=== PATIENT | male | born 1960 | race Native Hawaiian/Other Pacific Islander ===

== ENCOUNTER 2017-12-10 14:57 | Emergency (ER) | payer SELFPAY ==
[2017-12-10 15:13] VITALS: O2SAT 99
[2017-12-10] MEDS ORDERED: Sodium Chloride 0.9% 1,000 ML IV ONE (15:42)
[2017-12-10] MEDS ORDERED: Piperacillin/Tazobact 3.375 gm 100 ML IV STA (15:44)
--- NOTE | 2017-12-10 15:46 | C.PDOC ---
History Of Present Illness 57 yo male w/PMhx of NIDDM was sent to ED by for evaluation of painful mass over midback gradually developed for past 2 weeks. Pt reports, " noted significant enlargement for psat few days, oozing some yellow discharge". O therwise, pt denies fever, chills, known trauma or injury, CP, SOB, dyspnea, diaphoresis, palpitation, abd. pain, V/D, back pain, UTI sx. Ambulate to Ed, not in any apparent distress. Time Seen by Provider: 12/10/17 15:03 Chief Complaint (Nursing): Abnormal Skin Integrity History Per: Patient Past Medical History Reviewed: Historical Data, Nursing Documentation, Vital Signs Vital Signs: Last Vital Signs Temp 99.2 F 12/10/17 15:10 Pulse 70 12/10/17 15:10 Resp 18 12/10/17 15:10 BP 161/89 H 12/10/17 15:10 Pulse Ox 99 12/10/17 15:10 - Medical History PMH: Diabetes, HTN, Hypercholesterolemia Surgical History: Endoscopy Family History: States: No Known Family Hx - Social History Hx Tobacco Use: No Hx Alcohol Use: Yes Hx Substance Use: No - Immunization History Hx Tetanus Toxoid Vaccination: No Hx Influenza Vaccination: No Hx Pneumococcal Vaccination: No Review Of Systems Except As Marked, All Systems Reviewed And Found Negative. Constitutional: Negative for: Fever, Chills ENT: Negative for: Ear Discharge, Throat Pain Cardiovascular: Negative for: Chest Pain, Palpitations, Edema, Light Headedness Respiratory: Negative for: Cough, Shortness of Breath, Wheezing Gastrointestinal: Negative for: Nausea, Vomiting, Abdominal Pain, Diarrhea Genitourinary: Negative for: Dysuria Musculoskeletal: Negative for: Neck Pain Skin: Positive for: Lesions Neurological: Negative for: Weakness, Numbness, Altered Mental Status, Headache, Dizziness Physical Exam - Physical Exam Appears: Well, Non-toxic, No Acute Distress Skin: Normal Color, Warm, Dry, Other (3#5cm tender mobile mass ove middle pos terior back, flactulance, mild yellow thick oozing. No proximal streaking.) Head: Normacephalic Eye(s): bilateral: PERRL Nose: No Flaring, No Discharge Oral Mucosa: Moist, No Drooling Throat: No Erythema, No Drooling Neck: Normal ROM, Trachea Midline, Supple Cardiovascular: Rhythm Regular, No Murmur, No JVD Respiratory: No Decreased Breath Sounds, No Accessory Muscle Use, No Stridor, No Wheezing Gastrointestinal/Abdominal: Soft, No Tenderness, No Distention, No Guarding Back: No CVA Tenderness, No Vertebral Tenderness, No Paraspinal Tenderness Extremity: No Tenderness, No Deformity, No Swelling Neurological/Psych: Oriented x3, Normal Speech, Normal Motor, Normal Sensation, Normal Reflexes ED Course And Treatment - Laboratory Results Result Diagrams: 12/10/17 16:20 12/10/17 16:20 Lab Interpretation: No Acute Changes O2 Sat by Pulse Oximetry: 99 Pulse Ox Interpretation: Normal - Radiology CXR: Interpreted by Me, Viewed By Me CXR Interpretation: Yes: No Acute Disease Progress Note: case discussed with , requested surgical consult with and admission to hospitalist. DR. Albert called for consult, resident notified about consult at 17:00. After pt was seen by certified ophthalmic surgical assistant, case discussed with , admission for OR I&D recommend. Case discussed with Hospitalist and admission arranged. Pt remained tsable during the ED ev aluation. afebrile, hemodynamicaly stable. Non-toxic. results review and discussed with pt, agrees with plan. Disposition - Disposition Referrals: Nelson Albert MD [Staff Provider] - Disposition: HOSPITALIZED Disposition Time: 17:55 Condition: STABLE Additional Instructions: Patient is stable for discharge per Dr. Arevalo. Please follow up with General Surgery Dr. Albert in two days. Please call his office at [phone]. His office: [address] [place] [address] Please follow up with your primary doctor within 1 week. Please take the prescribed antibiotic for 7 days, take one tablet twice daily, 12 hours apart. Please keep the incision and drainage area part in place and dry until he is seen by Dr. Albert. Please continue to take his home medications as prescribed. If symptoms worsen patient should return to the nearest emergency facility. Case discussed with with patient and patient agreed and understood. Take care. Prescriptions: Doxycycline Hyclate 100 mg PO Q12H 7 Days #14 capsule Instructions: Cellulitis (Skin Infection), Adult (DC) Forms: [employer] (Upper Sorbian) - Clinical Impression Clinical Impression: Abscess or cellulitis of back
[2017-12-10] MEDS ORDERED: Piperacillin/Tazobact 3.375 gm 100 ML IVPB ONE (16:00)
[2017-12-10 16:25] LABS: BASO # 0.1 K/uL (0.0-0.2); BASO % 0.9 % (0.0-2.0); EOS % 0.3 % (0.0-4.0); HEMOGLOBIN 13.9 g/dL (12.0-18.0); LYMPH # 1.8 K/uL (1.0-4.3); LYMPH % 21.4 % (20.0-40.0); MEAN CELL VOLUME 89.2 fL (80.0-94.0); MEAN CORPUSCULAR HEMOGLOBIN 30.1 pg (27.0-31.0); MEAN CORPUSCULAR HGB CONC 33.7 g/dL (33.0-37.0); MEAN PLATELET VOLUME 7.6 fL (7.2-11.7); MONO # 0.6 K/uL (0.0-0.8); MONO % 7.3 % (0.0-10.0); NEUT # 5.8 K/uL (1.8-7.0); NEUT % 70.1 % (50.0-75.0); RBC 4.63 Mil/uL (4.40-5.90); RED CELL DISTRIBUTION WIDTH 13.3 % (11.5-14.5); WHITE BLOOD COUNT 8.3 K/uL (4.8-10.8)
[2017-12-10 16:32] LABS: SQUAMOUS EPITHIAL < 1 /hpf (0-5); URINE BILIRUBIN NEGATIVE (NEGATIVE); URINE BLOOD NEGATIVE (NEGATIVE); URINE CLARITY Clear (Clear); URINE COLOR Yellow (YELLOW); URINE GLUCOSE (UA) NORMAL (Normal); URINE LEUKOCYTE ESTERASE NEG Leu/uL (Negative); URINE PROTEIN NEGATIVE (NEGATIVE); URINE UROBILINOGEN NORMAL mg/dL (0.2-1.0)
[2017-12-10 16:33] LABS: INR 1.1; PROTHROMBIN TIME 12.1 SECONDS (9.7-12.2)
[2017-12-10 16:36] LABS: BLOOD UREA NITROGEN 17 mg/dL (9-20); CALCIUM 8.7 mg/dl (8.6-10.4); GFR NON-AFRICAN AMERICAN > 60
--- NOTE | 2017-12-10 16:36 | RAD ---
Date of service: 12/10/2017 HISTORY: SOB COMPARISON: No prior. TECHNIQUE: Chest PA and lateral FINDINGS: LUNGS: No active pulmonary disease. PLEURA: No significant pleural effusion identified. No pneumothorax apparent. CARDIOVASCULAR: No aortic atherosclerotic calcification present. Normal cardiac size. No pulmonary vascular congestion. OSSEOUS STRUCTURES: No significant abnormalities. VISUALIZED UPPER ABDOMEN: Normal. OTHER FINDINGS: None. IMPRESSION: No active disease.
[2017-12-10 16:42] LABS: ALB/GLOB RATIO 1.3 (1.0-2.1); ALBUMIN 4.3 g/dL (3.5-5.0); ALT/SGPT 30 U/L (21-72); AST/SGOT 31 U/L (17-59)
--- NOTE | 2017-12-10 18:33 | CP.PCM.CON ---
History of Present Illness - History of Present Illness History of Present Illness: General Surgery Consult Note for Dr. Albert Reason for Consult: mid back abscess vs infected sebaceous cyst 57 M with PMH of HTN, DM presents to [facility] for complaint of mid back abscess. Patient was seen and examined in ED. Patient states that he has had a raised area on his back for about two week. It started out small then gradually go larger. He states that it has been causing him discomfort. He reports drainage from the site. Patient was referred to ED today by his PMD. Patient rates pain as moderate. He describes it as constant and aching loctaed on left mid back. He denies any aggravating or alleviating factors. Patient denies fever/chills, cp, SOB, palpitations, nausea/vomiting, diarrhea, abd pain, urinary symptoms. PMH: as above PSH: endoscopy Meds: As per MAR ALL: NSAIDs FH: non-contributory Social: denies tobacco/EtOH/illicit drug use Review of Systems - Review of Systems All systems: reviewed and no additional remarkable complaints except (as per HPI) Past Patient History - Past Social History Smoking Status: Never Smoked - CARDIAC Hx Hypercholesterolemia: Yes Hx Hypertension: Yes - ENDOCRINE/METABOLIC Hx Endocrine Disorders: Yes Hx Diabetes Mellitus Type 2: Yes - PSYCHIATRIC Hx Substance Use: No - SURGICAL HISTORY Hx Surgeries: Yes Meds Home Medications: Home Medication List Medication Instructions Recorded Confirmed Type Doxycycline Hyclate 100 mg PO Q12H 7 Days #14 capsule 12/10/17 Rx Allergies/Adverse Reactions: Allergies Allergy/AdvReac Type Severity Reaction Status Date / Time NSAIDS (Non-Steroidal AdvReac Severe PAIN Verified 12/10/17 15:14 Anti-Inflamma Physical Exam - Constitutional Appears: Well, Non-toxic, No Acute Distress - Head Exam Head Exam: ATRAUMATIC, NORMOCEPHALIC - Eye Exam Eye Exam: EOMI, Normal appearance Pupil Exam: PERRL - ENT Exam ENT Exam: Mucous Membranes Moist - Respiratory Exam Respiratory Exam: NORMAL BREATHING PATTERN - Cardiovascular Exam Cardiovascular Exam: REGULAR RHYTHM - GI/Abdominal Exam GI & Abdominal Exam: Soft. absent: Tenderness - Extremities Exam Extremities exam: Positive for: normal capillary refill, pedal pulses present. Negative for: calf tenderness - Back Exam Additional comments: 3 x 5 cm raised area in mid back near T4-T5, purulent drainage, erythema, fluctuance and induration present - Neurological Exam Neurological exam: Alert, CN II-XII Intact, Normal Gait, Oriented x3 - Psychiatric Exam Psychiatric exam: Normal Affect, Normal Mood - Skin Skin Exam: Dry, Warm Additional comments: 3 x 5 cm raised area in mid back near T4-T5, purulent drainage, erythema, fluctuance and induration present Results - Vital Signs Recent Vital Signs: Last Vital Signs Temp 99.2 F 12/10/17 15:10 Pulse 70 12/10/17 15:10 Resp 18 12/10/17 15:10 BP 161/89 H 12/10/17 15:10 Pulse Ox 99 12/10/17 18:15 - Labs Result Diagrams: 12/10/17 16:20 12/10/17 16:20 Labs: Laboratory Results - last 24 hr 12/10/17 12/10/17 12/10/17 16:20 16:20 16:20 WBC 8.3 RBC 4.63 Hgb 13.9 Hct 41.4 MCV 89.2 MCH 30.1 MCHC 33.7 RDW 13.3 Plt Count 239 MPV 7.6 Neut % (Auto) 70.1 Lymph % (Auto) 21.4 [place] % (Auto) 7.3 Eos % (Auto) 0.3 Baso % (Auto) 0.9 Neut # (Auto) 5.8 Lymph # (Auto) 1.8 [place] # (Auto) 0.6 Eos # (Auto) 0.0 Baso # (Auto) 0.1 PT 12.1 INR 1.1 APTT 38 H Sodium 138 Potassium 4.5 Chloride 101 Carbon Dioxide 26 Anion Gap 15 BUN 17 Creatinine 0.7 L Est GFR ( Amer) > 60 Est GFR (Non-Af Amer) > 60 Random Glucose 161 H Calcium 8.7 Total Bilirubin 0.8 AST 31 ALT 30 Alkaline Phosphatase 50 Total Creatine Kinase 190 H Total Protein 7.7 Albumin 4.3 Globulin 3.3 Albumin/Globulin Ratio 1.3 Urine Color Urine Clarity Urine pH Ur Specific [place] Urine Protein Urine Glucose (UA) Urine Ketones Urine Blood Urine Nitrate Urine Bilirubin Urine Urobilinogen Ur Leukocyte Esterase Urine WBC (Auto) Urine RBC (Auto) Ur Squamous Epith Cells 12/10/17 16:20 WBC RBC Hgb Hct MCV MCH MCHC RDW Plt Count MPV Neut % (Auto) Lymph % (Auto) [place] % (Auto) Eos % (Auto) Baso % (Auto) Neut # (Auto) Lymph # (Auto) [place] # (Auto) Eos # (Auto) Baso # (Auto) PT INR APTT Sodium Potassium Chloride Carbon Dioxide Anion Gap BUN Creatinine Est GFR ( Amer) Est GFR (Non-Af Amer) Random Glucose Calcium Total Bilirubin AST ALT Alkaline Phosphatase Total Creatine Kinase Total Protein Albumin Globulin Albumin/Globulin Ratio Urine Color Yellow Urine Clarity Clear Urine pH 5.0 Ur Specific [place] 1.021 Urine Protein Negative Urine Glucose (UA) Normal Urine Ketones Negative Urine Blood Negative Urine Nitrate Negative Urine Bilirubin Negative Urine Urobilinogen Normal Ur Leukocyte Esterase Neg Urine WBC (Auto) < 1 Urine RBC (Auto) 1 Ur Squamous Epith Cells < 1 Assessment & Plan - Assessment and Plan (Free Text) Assessment: 57 M who presents for infected sebaceous cyst of mid back Plan: -Bedside I&D performed -Patient clear for discharge from surgical standpoint -Take oral antibiotics for 7 days as prescribed -Follow up with Dr. Albert in 2 days to get packing removed -May change dressing as needed -Refrain from showering -Keep area clean and dry -[facility] - Date & Time Date: 12/10/17 Time: 19:30
[2017-12-10] MEDS ORDERED: Lidocaine 1%/Epinephrine 1:100000 30 ml vial IJ ONE (18:50)
--- NOTE | 2017-12-10 18:51 | PCM.SURG1 ---
Surgeon's Initial Post Op Note - Surgeon's Notes Surgeon: Dr. Albert Solar Pv Installer: Glendy PGY2 Type of Anesthesia: Local Pre-Operative Diagnosis: infected sebaceous cyst vs abscess of mid back Operative Findings: infected sebaceous cyst of mid back Post-Operative Diagnosis: infected sebaceous cyst of mid back Operation Performed: Bedside Incision & drainage of infected sebaceous cyst of mid back with irrigation and packing Specimen/Specimens Removed: wound culture Estimated Blood Loss: EBL {In ML}: 10 Blood Products Given: N/A Drains Used: No Drains Post-Op Condition: Good Date of Surgery/Procedure: 12/10/17 Time of Surgery/Procedure: 19:59
[2017-12-10] MEDS ORDERED: Lidocaine 2% MPF (5 ml) Inj ONE (19:11)
--- NOTE | 2017-12-10 20:06 | CP.PCM.HP ---
<Jose Eduardo Bowen M - Last Filed: 12/10/17 22:01> History of Present Illness - History of Present Illness History of Present Illness: H&P for Hospitalist Dr. rAevalo. 57 y w/ PMHx of diabetes, HTN, and sebaceous cyst presents to ED of worsening of his sebaceous cyst, that became infectious. Patient stated for the past week the the sebaceous cyst became irritated and began expression fluid. Patient attempted to use OTC abx ointment; however, it did not resolve. Patient visited his PMD that requested to visit the ED for further management. Patient stated the area was painful but denied fevers, chills, nausea, vomiting, chest pain, SOB, abdominal pain. In ED patient had bedside I&D by the surgical garment assembler. PMD: PMHx: HTN, DM, sebaceous cyst Meds: Lisinopril, glipizide, dexilant, atorvastatin PSHx: endoscopy Allergies: NSAIDs Social: denies tobacco, occasional ETOH Present on Admission - Present on Admission Any Indicators Present on Admission: No Review of Systems - Constitutional Constitutional: absent: Chills, Fever - EENT Eyes: absent: Pain Ears: absent: Ear Pain Nose/Mouth/Throat: absent: Dry Mouth - Cardiovascular Cardiovascular: absent: Chest Pain - Respiratory Respiratory: absent: Dyspnea - Gastrointestinal Gastrointestinal: absent: Abdominal Pain, Vomiting - Genitourinary Genitourinary: absent: Change in Urinary Stream - Neurological Neurological: absent: Abnormal Hearing Past Patient History - Past Social History Smoking Status: Never Smoked - CARDIAC Hx Hypercholesterolemia: Yes Hx Hypertension: Yes - ENDOCRINE/METABOLIC Hx Endocrine Disorders: Yes Hx Diabetes Mellitus Type 2: Yes - PSYCHIATRIC Hx Substance Use: No - SURGICAL HISTORY Hx Surgeries: Yes Meds Home Medications: Home Medication List Medication Instructions Recorded Confirmed Type RX: Doxycycline Hyclate 100 mg PO Q12H 7 Days #14 capsule 12/10/17 Rx Allergies/Adverse Reactions: Allergies Allergy/AdvReac Type Severity Reaction Status Date / Time NSAIDS (Non-Steroidal AdvReac Severe PAIN Verified 12/10/17 15:14 Anti-Inflamma Physical Exam - Constitutional Appears: Non-toxic, No Acute Distress - Head Exam Head Exam: ATRAUMATIC, NORMAL INSPECTION, NORMOCEPHALIC - Eye Exam Eye Exam: Normal appearance - ENT Exam ENT Exam: Mucous Membranes Moist - Respiratory Exam Respiratory Exam: Clear to Auscultation Bilateral, NORMAL BREATHING PATTERN. absent: Rales, Rhonchi, Wheezes - Cardiovascular Exam Cardiovascular Exam: +S1, +S2 - GI/Abdominal Exam GI & Abdominal Exam: Normal Bowel Sounds, Soft. absent: Tenderness - Extremities Exam Extremities exam: Negative for: calf tenderness, pedal edema - Back Exam Back exam: absent: CVA tenderness (L), CVA tenderness (R) - Neurological Exam Neurological exam: Alert, Oriented x3 - Psychiatric Exam Psychiatric exam: Normal Mood - Skin Skin Exam: Dry, Normal Color, Warm Additional comments: I&D area in upper L thoracic region ( roughly T4- T6) - I & D area wrapped with packing in place - Exterior portion of dressing clean, dry Results - Vital Signs Recent Vital Signs: Last Vital Signs Temp 99.2 F 12/10/17 15:10 Pulse 70 12/10/17 15:10 Resp 18 12/10/17 15:10 BP 161/89 H 12/10/17 15:10 Pulse Ox 99 12/10/17 18:15 - Labs Result Diagrams: 12/10/17 16:20 12/10/17 16:20 Labs: Laboratory Results - last 24 hr 12/10/17 12/10/17 12/10/17 16:20 16:20 16:20 WBC 8.3 RBC 4.63 Hgb 13.9 Hct 41.4 MCV 89.2 MCH 30.1 MCHC 33.7 RDW 13.3 Plt Count 239 MPV 7.6 Neut % (Auto) 70.1 Lymph % (Auto) 21.4 [place] % (Auto) 7.3 Eos % (Auto) 0.3 Baso % (Auto) 0.9 Neut # (Auto) 5.8 Lymph # (Auto) 1.8 [place] # (Auto) 0.6 Eos # (Auto) 0.0 Baso # (Auto) 0.1 PT 12.1 INR 1.1 APTT 38 H Sodium 138 Potassium 4.5 Chloride 101 Carbon Dioxide 26 Anion Gap 15 BUN 17 Creatinine 0.7 L Est GFR ( Amer) > 60 Est GFR (Non-Af Amer) > 60 Random Glucose 161 H Calcium 8.7 Total Bilirubin 0.8 AST 31 ALT 30 Alkaline Phosphatase 50 Total Creatine Kinase 190 H Total Protein 7.7 Albumin 4.3 Globulin 3.3 Albumin/Globulin Ratio 1.3 Urine Color Urine Clarity Urine pH Ur Specific [place] Urine Protein Urine Glucose (UA) Urine Ketones Urine Blood Urine Nitrate Urine Bilirubin Urine Urobilinogen Ur Leukocyte Esterase Urine WBC (Auto) Urine RBC (Auto) Ur Squamous Epith Cells 12/10/17 16:20 WBC RBC Hgb Hct MCV MCH MCHC RDW Plt Count MPV Neut % (Auto) Lymph % (Auto) [place] % (Auto) Eos % (Auto) Baso % (Auto) Neut # (Auto) Lymph # (Auto) [place] # (Auto) Eos # (Auto) Baso # (Auto) PT INR APTT Sodium Potassium Chloride Carbon Dioxide Anion Gap BUN Creatinine Est GFR ( Amer) Est GFR (Non-Af Amer) Random Glucose Calcium Total Bilirubin AST ALT Alkaline Phosphatase Total Creatine Kinase Total Protein Albumin Globulin Albumin/Globulin Ratio Urine Color Yellow Urine Clarity Clear Urine pH 5.0 Ur Specific [place] 1.021 Urine Protein Negative Urine Glucose (UA) Normal Urine Ketones Negative Urine Blood Negative Urine Nitrate Negative Urine Bilirubin Negative Urine Urobilinogen Normal Ur Leukocyte Esterase Neg Urine WBC (Auto) < 1 Urine RBC (Auto) 1 Ur Squamous Epith Cells < 1 Assessment & Plan - Assessment and Plan (Free Text) Assessment: 57 y w/ PMHx of diabetes, HTN, and sebaceous cyst presents to ED of worsening of his sebaceous cyst, that became infectious, bedside I&D performed by surgical garment assembler w/ packing in place: Sebaceous cyst/ Abscess - F/u surgery recs, Dr. Albert consulted - bedside I&D w/ packing - keep area dry - f/u w/ Dr. Albert outpatient - Doxycycline 100 mg Q12H for 7 days HTN - continue home medications: lisinopril 2.5mg daily DM - continue home medications: glipizide 5mg BID GERD - continue home medications: dexilant 60 mg daily HLD - continue home medications: lipitor 40mg daily <Simone Arevalo P - Last Filed: 12/11/17 08:18> Results - Vital Signs Recent Vital Signs: Last Vital Signs Temp 98.4 F 12/10/17 20:40 Pulse 79 12/10/17 20:40 Resp 20 12/10/17 20:40 BP 158/78 H 12/10/17 20:40 Pulse Ox 99 12/10/17 20:40 - Labs Result Diagrams: 12/10/17 16:20 12/10/17 16:20 Labs: Laboratory Results - last 24 hr 12/10/17 12/10/17 12/10/17 16:20 16:20 16:20 WBC 8.3 RBC 4.63 Hgb 13.9 Hct 41.4 MCV 89.2 MCH 30.1 MCHC 33.7 RDW 13.3 Plt Count 239 MPV 7.6 Neut % (Auto) 70.1 Lymph % (Auto) 21.4 [place] % (Auto) 7.3 Eos % (Auto) 0.3 Baso % (Auto) 0.9 Neut # (Auto) 5.8 Lymph # (Auto) 1.8 [place] # (Auto) 0.6 Eos # (Auto) 0.0 Baso # (Auto) 0.1 PT 12.1 INR 1.1 APTT 38 H Sodium 138 Potassium 4.5 Chloride 101 Carbon Dioxide 26 Anion Gap 15 BUN 17 Creatinine 0.7 L Est GFR ( Amer) > 60 Est GFR (Non-Af Amer) > 60 Random Glucose 161 H Calcium 8.7 Total Bilirubin 0.8 AST 31 ALT 30 Alkaline Phosphatase 50 Total Creatine Kinase 190 H Total Protein 7.7 Albumin 4.3 Globulin 3.3 Albumin/Globulin Ratio 1.3 Urine Color Urine Clarity Urine pH Ur Specific [place] Urine Protein Urine Glucose (UA) Urine Ketones Urine Blood Urine Nitrate Urine Bilirubin Urine Urobilinogen Ur Leukocyte Esterase Urine WBC (Auto) Urine RBC (Auto) Ur Squamous Epith Cells 12/10/17 16:20 WBC RBC Hgb Hct MCV MCH MCHC RDW Plt Count MPV Neut % (Auto) Lymph % (Auto) [place] % (Auto) Eos % (Auto) Baso % (Auto) Neut # (Auto) Lymph # (Auto) [place] # (Auto) Eos # (Auto) Baso # (Auto) PT INR APTT Sodium Potassium Chloride Carbon Dioxide Anion Gap BUN Creatinine Est GFR ( Amer) Est GFR (Non-Af Amer) Random Glucose Calcium Total Bilirubin AST ALT Alkaline Phosphatase Total Creatine Kinase Total Protein Albumin Globulin Albumin/Globulin Ratio Urine Color Yellow Urine Clarity Clear Urine pH 5.0 Ur Specific [place] 1.021 Urine Protein Negative Urine Glucose (UA) Normal Urine Ketones Negative Urine Blood Negative Urine Nitrate Negative Urine Bilirubin Negative Urine Urobilinogen Normal Ur Leukocyte Esterase Neg Urine WBC (Auto) < 1 Urine RBC (Auto) 1 Ur Squamous Epith Cells < 1 Attending/Attestation - Attestation I have personally seen and examined this patient.: Yes I have fully participated in the care of the patient.: Yes I have reviewed all pertinent clinical information: Yes Notes (Text): 12/11/17 08:10 Infected sebaceous cyst DM controlled. Plan Patient was cleared by surgery after drainage of the cyst and removal of the sack, the space was packed with gauze. Patient to follow up Dr. Albert in the clinic in 1-2 days and discharged with script of doxycycline.
--- NOTE | 2017-12-10 20:07 | CP.PCM.DIS ---
Provider - Provider Date of Admission: 12/10/17 17:55 Attending physician: Jeffery Lemon DO Primary care physician: Dr. Estrada Consults: Dr. Albert (general surgery) Time Spent in preparation of Discharge (in minutes): 40 Diagnosis - Discharge Diagnosis (1) Abscess or cellulitis of back Status: Acute Comment: Surgery performed I&D at bedside. D/C with oral abx. Hospital Course - Lab Results Lab Results: Micro Results 12/10/17 16:20 Back Gram Stain - Final Most Recent Lab Values WBC 8.3 K/uL (4.8-10.8) 12/10/17 16:20 RBC 4.63 Mil/uL (4.40-5.90) 12/10/17 16:20 Hgb 13.9 g/dL (12.0-18.0) 12/10/17 16:20 Hct 41.4 % (35.0-51.0) 12/10/17 16:20 MCV 89.2 fL (80.0-94.0) 12/10/17 16:20 MCH 30.1 pg (27.0-31.0) 12/10/17 16:20 MCHC 33.7 g/dL (33.0-37.0) 12/10/17 16:20 RDW 13.3 % (11.5-14.5) 12/10/17 16:20 Plt Count 239 K/uL (130-400) 12/10/17 16:20 MPV 7.6 fL (7.2-11.7) 12/10/17 16:20 Neut % (Auto) 70.1 % (50.0-75.0) 12/10/17 16:20 Lymph % (Auto) 21.4 % (20.0-40.0) 12/10/17 16:20 Weston % (Auto) 7.3 % (0.0-10.0) 12/10/17 16:20 Eos % (Auto) 0.3 % (0.0-4.0) 12/10/17 16:20 Baso % (Auto) 0.9 % (0.0-2.0) 12/10/17 16:20 Neut # (Auto) 5.8 K/uL (1.8-7.0) 12/10/17 16:20 Lymph # (Auto) 1.8 K/uL (1.0-4.3) 12/10/17 16:20 Weston # (Auto) 0.6 K/uL (0.0-0.8) 12/10/17 16:20 Eos # (Auto) 0.0 K/uL (0.0-0.7) 12/10/17 16:20 Baso # (Auto) 0.1 K/uL (0.0-0.2) 12/10/17 16:20 PT 12.1 SECONDS (9.7-12.2) 12/10/17 16:20 INR 1.1 12/10/17 16:20 APTT 38 SECONDS (21-34) H 12/10/17 16:20 Sodium 138 mmol/L (132-148) 12/10/17 16:20 Potassium 4.5 mmol/L (3.6-5.2) 12/10/17 16:20 Chloride 101 mmol/L (98-107) 12/10/17 16:20 Carbon Dioxide 26 mmol/L (22-30) 12/10/17 16:20 Anion Gap 15 (10-20) 12/10/17 16:20 BUN 17 mg/dL (9-20) 12/10/17 16:20 Creatinine 0.7 mg/dL (0.8-1.5) L 12/10/17 16:20 Est GFR ( Amer) > 60 12/10/17 16:20 Est GFR (Non-Af Amer) > 60 12/10/17 16:20 Random Glucose 161 mg/dL (75-110) H 12/10/17 16:20 Calcium 8.7 mg/dl (8.6-10.4) 12/10/17 16:20 Total Bilirubin 0.8 mg/dL (0.2-1.3) 12/10/17 16:20 AST 31 U/L (17-59) 12/10/17 16:20 ALT 30 U/L (21-72) 12/10/17 16:20 Alkaline Phosphatase 50 U/L (38-126) 12/10/17 16:20 Total Creatine Kinase 190 U/L (55-170) H 12/10/17 16:20 Total Protein 7.7 g/dL (6.3-8.3) 12/10/17 16:20 Albumin 4.3 g/dL (3.5-5.0) 12/10/17 16:20 Globulin 3.3 gm/dL (2.2-3.9) 12/10/17 16:20 Albumin/Globulin Ratio 1.3 (1.0-2.1) 12/10/17 16:20 Urine Color Yellow (YELLOW) 12/10/17 16:20 Urine Clarity Clear (Clear) 12/10/17 16:20 Urine pH 5.0 (5.0-8.0) 12/10/17 16:20 Ur Specific [place] 1.021 (1.003-1.030) 12/10/17 16:20 Urine Protein Negative mg/dL (NEGATIVE) 12/10/17 16:20 Urine Glucose (UA) Normal mg/dL (Normal) 12/10/17 16:20 Urine Ketones Negative mg/dL (NEGATIVE) 12/10/17 16:20 Urine Blood Negative (NEGATIVE) 12/10/17 16:20 Urine Nitrate Negative (NEGATIVE) 12/10/17 16:20 Urine Bilirubin Negative (NEGATIVE) 12/10/17 16:20 Urine Urobilinogen Normal mg/dL (0.2-1.0) 12/10/17 16:20 Ur Leukocyte Esterase Neg Fernandez/uL (Negative) 12/10/17 16:20 Urine WBC (Auto) < 1 /hpf (0-5) 12/10/17 16:20 Urine RBC (Auto) 1 /hpf (0-3) 12/10/17 16:20 Ur Squamous Epith Cells < 1 /hpf (0-5) 12/10/17 16:20 - Hospital Course Hospital Course: 57 y w/ PMHx of diabetes, HTN, and sebaceous cyst presents to ED of worsening of his sebaceous cyst, that became infectious. Patient stated for the past week the the sebaceous cyst became irritated and began expression fluid. Patient attempted to use OTC abx ointment; however, it did not resolve. Patient visited his PMD that requested to visit the ED for further management. Patient stated the area was painful but denied fevers, chills, nausea, vomiting, chest pain, SOB, abdominal pain. In ED patient had bedside I&D by the residential service technician. Patient received I&D and was stable for discharge with oral antibiotics. Above is only a brief summary of patient stay while in the hospital. See EMR for full details. Below are the discharge instructions provided to the patient upon discharge. Patient is stable for discharge per Dr. Arevalo. Please follow up with General Surgery Dr. Albert in two days. Please call his office at [phone]. His office: [address] [place] [address] Please follow up with your primary doctor within 1 week. Please take the prescribed antibiotic for 7 days, take one tablet twice daily, 12 hours apart. Please keep the incision and drainage area part in place and dry until he is seen by Dr. Albert. Please continue to take his home medications as prescribed. If symptoms worsen patient should return to the nearest emergency facility. Case discussed with with patient and patient agreed and understood. Take care. Discharge Exam - Head Exam Head Exam: ATRAUMATIC, NORMOCEPHALIC - Eye Exam Eye Exam: EOMI, Normal appearance - ENT Exam ENT Exam: Mucous Membranes Moist - Respiratory Exam Respiratory Exam: NORMAL BREATHING PATTERN, UNREMARKABLE - Cardiovascular Exam Cardiovascular Exam: +S1, +S2 - GI/Abdominal Exam GI & Abdominal Exam: Normal Bowel Sounds, Soft - Extremities Exam Additional comments: no calf tenderness, no edema - Back Exam Back exam: absent: CVA tenderness (L), CVA tenderness (R) - Neurological Exam Neurological exam: Alert, Oriented x3 - Psychiatric Exam Psychiatric exam: Normal Affect, Normal Mood - Skin Skin Exam: Dry, Intact, Normal Color, Warm Additional comments: I&D area in upper L thoracic region ( roughly T4- T6) - I & D area wrapped with packing in place - Exterior portion of dressing clean, dry Discharge Plan - Discharge Medications Prescriptions: Doxycycline Hyclate 100 mg PO Q12H 7 Days #14 capsule - Follow Up Plan Condition: STABLE Disposition: HOSPITALIZED Instructions: Cellulitis (Skin Infection), Adult (DC) Additional Instructions: Patient is stable for discharge per Dr. Arevalo. Please follow up with General Surgery Dr. Albert in two days. Please call his office at [phone]. His office: [address] [facility], [place] [address] Please follow up with your primary doctor within 1 week. Please take the prescribed antibiotic for 7 days, take one tablet twice daily, 12 hours apart. Please keep the incision and drainage area part in place and dry until he is seen by Dr. Albert. Please continue to take his home medications as prescribed. If symptoms worsen patient should return to the nearest emergency facility. Case discussed with with patient and patient agreed and understood. Take care. Referrals: Nelson Albert MD [Staff Provider] -
[2017-12-10 20:41] VITALS: BP 158/78; PULSE 79; RESP 20; TEMP 98.4
== END 2017-12-10 20:44 | disposition home or self-care (01) ==
LOC: C.ER 14:57 → C.9E 17:55 → UNDOADMOB 17:55 → C.5S 19:36 → C.9E 19:36 → C.ER 20:44
DX: L72.3 Sebaceous cyst (principal); I10 Essential (primary) hypertension; E78.00 Pure hypercholesterolemia, unspecified; E11.9 Type 2 diabetes mellitus without complications
CPT/HCPCS: 10060; 71046; 80053; 81001; 82550; 85025; 85610; 85730; 87040; 87070; 96365; 96375; 99285; J2270; J2543; J7030

== ENCOUNTER 2018-03-14 06:56 | Outpatient (CLI) | payer OTHER | END 2018-03-14 06:57 | disposition home or self-care (01) | LOC: C.LAB 06:56 | DX: E11.9 Type 2 diabetes mellitus without complications (principal) ==

== ENCOUNTER 2018-06-24 07:46 | Outpatient (CLI) | payer OTHER | END 2018-06-24 07:47 | disposition home or self-care (01) | LOC: C.LAB 07:46 | DX: E11.9 Type 2 diabetes mellitus without complications (principal) ==